=== PATIENT | female | born 1960 | race Caucasian/White ===

== ENCOUNTER 2016-12-07 06:01 | Day surgery (SDC) | payer OTHER ==
[~2016-12-07] VITALS: Ht 157.5 cm; Wt 62.6 kg
[2016-12-07 06:39] VITALS: Ht 157.5 cm; Wt 62.6 kg
[2016-12-07] MEDS ORDERED: FAMO-96 PO (06:58)
[2016-12-07] MEDS ORDERED: PRAV20TA63 PO (06:58)
[2016-12-07] MEDS ORDERED: OMEP20CA16 PO (06:58)
[2016-12-07] MEDS ORDERED: TRAMADOL PRN (06:58)
[2016-12-07 07:10] VITALS: BP 121/60; PULSE 60; RESP 22
[2016-12-07] MEDS ORDERED: FENTAnyl 50 MCG/ML VIAL ONE (07:44)
[2016-12-07] MEDS ORDERED: MIDAZOLAM 1 MG/ML 2 ML INJ ONE ×2 (07:44)
--- NOTE | 2016-12-07 07:44 | OPPN ---
Date/Time of Note Date/Time of Note DATE: 12/07/16 TIME: 07:40 Operative Report Preoperative Diagnosis abdominal pain Postoperative Diagnosis gastritis Operation/Procedure Performed EGD and biopsy Provider: JENNIE STRICKLAND MD Anesthesia Type: moderate sedation Estimated blood loss: none Transfusion Required: no Specimens gastric biopsy Grafts/Implants: none Complications: no JENNIE STRICKLAND MD Dec 07, 2016 07:44
--- NOTE | 2016-12-07 08:02 | GILP ---
DATE OF PROCEDURE: 12/07/2016 PROCEDURE PERFORMED: Esophagogastroduodenoscopy and biopsy. SURGEON: Milla Corrigan MD. PREOPERATIVE DIAGNOSIS: Abdominal pain. POSTOPERATIVE DIAGNOSES: 1. Gastritis with erosions. 2. Biopsy was positive for Helicobacter pylori infection. INDICATIONS FOR PROCEDURE: Ms. Vera Madsen is a 55-year- old female patient who had upper abdominal pain not responding to therapy. The patient was scheduled for endoscopy examination for further evaluation. The procedure and possible complications were well explained to the patient. The patient understood and consented to the procedure. DESCRIPTION OF PROCEDURE: Under the influence of fentanyl and Versed, the gastroscope was carefully introduced into the esophagus. Under direct vision, it was advanced to the stomach, into the pylorus, into the duodenal bulb, and descending duodenum. FINDINGS: Esophagus: Mucosa was normal. Stomach: Patient had gastritis and gastric mucosal biopsies were taken for H pylori test. The patient was also noted to have a nodule in the body of the stomach and biopsies were taken for histopathology. Duodenum was normal. She tolerated the procedure very well. There was no complication from the procedure. At the end of procedure, she was awake with stable vital signs and she was discharged home in the care of her family. IMPRESSION: 1. Gastritis with erosions. 2. Gastric mucosal biopsies were taken for Helicobacter pylori test and it was positive. 3. Gastric nodule in the body of the stomach and biopsies were taken for histopathology. PLAN: 1. Omeprazole, doxycycline, Flagyl, and Pepto-Bismol for 14 days for H pylori infection. 2. Await histopathology reports. Dictated By: MD ILYA Amaya/cain/solange /Document#: [id number]
[2016-12-07 08:03] VITALS: BP 123/55; PULSE 64; RESP 14
== END 2016-12-07 11:20 | disposition home or self-care (01) ==
LOC: GIL 06:01
PROVIDERS: ATTEND Internal Medicine Gastroenterology
DX: K29.50 Unspecified chronic gastritis without bleeding (principal); B96.81 Helicobacter pylori [H. pylori] as the cause of diseases classified elsewhere; E78.5 Hyperlipidemia, unspecified
CPT/HCPCS: 43239; 87081; 88305; 88312; J2250; J3010; Z7610